=== PATIENT | female | born 1950 | race Caucasian/White ===

== ENCOUNTER → 2017-04-22 | Outpatient (CLI) | payer MEDICAID | LOC: BRMIMAGING 14:03 | PROVIDERS: ATTEND Obstetrics & Gynecology Gynecology | DX: N95.0 Postmenopausal bleeding (principal); R93.8 Abnormal findings on diagnostic imaging of other specified body structures | CPT/HCPCS: 76856-PO ==

== ENCOUNTER → 2017-05-11 | Outpatient (CLI) | payer MEDICAID | LOC: BRMIMAGING 14:31 | PROVIDERS: ATTEND Internal Medicine | DX: Z12.31 Encounter for screening mammogram for malignant neoplasm of breast (principal); Z80.3 Family history of malignant neoplasm of breast | CPT/HCPCS: G0202 ==

== ENCOUNTER 2017-06-09 05:40 | Day surgery (SDC) | payer MEDICAID ==
--- NOTE | 2017-06-08 23:02 | GHP ---
[f rep st] PREOP HISTORY AND PHYSICAL DATE OF ADMISSION: 06/09/2017 DATE OF SURGERY: 06/09/2017, on the Gynecology Service. PREOPERATIVE HISTORY: The patient is a 66-year-old, G1, P1, postmenopausal since the age of 53, who had an episode of postmenopausal bleeding in April 2017. The patient had bleeding for a day and pelvic pain for a couple days in early April. The patient had not had any different physical activity and has not been sexually active for years. The patient denied any vaginal discharge, odor, itch or burning. The patient had an ultrasound performed which shows a thickened uterine lining of 11.4 mm. The uterus itself is small at 5 x 2.6 x 2.6 cm. Ovaries bilaterally were normal. An attempt was made in mid April to perform an endometrial biopsy. However, due to cervical stenosis, this was not successful. At that time, the patient was felt to have atrophic vaginitis and was advised to use estrogen cream. Was also noted to have some signs of lichen sclerosus and was given a topical clobetasol cream. The patient has used this for a couple weeks. The vaginal estrogen she was given for the atrophic changes were discontinued after the ultrasound findings were obtained. The patient was given options of trying to re-attempt another endometrial biopsy in the office versus proceeding with a hysteroscopy and D and C for more thorough sampling. The patient opted to proceed to the operating room. Risks and benefits were discussed and the consent form signed. PAST MEDICAL HISTORY: Hypertension since 2009. 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 In evaluation of the sarcoidosis, the patient was found to have pulmonary nodules. On her cardiac assessment, an EKG showed left axis deviation. Has been followed up with Dr. Graham. History of GERD. Restless legs. Abnormal Pap smear with KAYLEEN III per patient with a cervical conization in late 20s. PAST SURGICAL HISTORY: Multiple knee surgeries on her left and a total knee replacement on the right. Also, quadriceps tendon repair on the left. HOSPITALIZATIONS: In December 2014, acute pancreatitis. PAST OBSTETRIC HISTORY: In 1978, a vaginal forceps-assisted delivery. ALLERGIES: The patient has no known drug allergies. CURRENT MEDICATION: Losartan 25 mg daily, gabapentin 600 mg daily, tramadol 25 mg daily, omeprazole 20 mg daily, Percocet 10/325 three times a week, clobetasol topically twice a week for 2 weeks. SOCIAL HISTORY: The patient is single. Patient has not been sexually active for years. non-smoker. No alcohol or drug use. The patient is exercising 6d a week. patient did have chlamydia, normal pap and neg HPV April 2017. REVIEW OF SYSTEMS: 8 point ROS with pertinent positives and negatives noted above. PHYSICAL EXAMINATION: GENERAL: well-developed, obese white female in no physical distress. VITAL SIGNS: The patient is clinically afebrile. Blood pressure 116/70. LUNGS: Clear to auscultation bilaterally. CARDIOVASCULAR: Regular rate and rhythm. PELVIC: Performed. There was a flat cervix. Was difficult to locate the os. BIMANUAL: The uterus is small, nontender. There are no adnexal masses. There is some mild questionable signs of lichen sclerosus with agglutinated upper labial folds and thin epithelium. EXTREMITIES : Nontender. ASSESSMENT: Postmenopausal bleeding with thickened lining on ultrasound. Stenotic cervix noted in the office. The patient was given a prescription for Cytotec to use prior to the procedure for cervical softening. The patient wants to proceed with definitive management with a hysteroscopy and dilation and curettage for evaluation. PLAN: The patient will use the Cytotec. Then, present on 06/09/2017, for surgery. Patient also has a history of hypertension, sarcoidosis, gastroesophageal reflux disease, and history of a conization for severe dysplasia. /[id number]/MODL MTDD
[2017-06-09] MEDS ORDERED: ceFAZolin 2 GM/SWFI 2 GM/20 ML SYR IVP ONE (06:15)
[2017-06-09] MEDS ORDERED: LIDOCAINE 1% 2 ML INJ ID PRN (06:16)
[2017-06-09] MEDS ORDERED: LR 1,000 ML IV ONE (06:16)
[2017-06-09 06:47] VITALS: PULSE 76
[2017-06-09] MEDS ORDERED: MIDAZOLAM 2 MG/2 ML VIAL ONE (06:50)
[2017-06-09] MEDS ORDERED: fentaNYL 100 MCG/2 ML INJ ONE ×2 (06:50→08:32)
[2017-06-09] MEDS ORDERED: PROPOFOL 200 MG/20 ML VIAL ONE (06:50)
[2017-06-09] MEDS ORDERED: PROPOFOL/EMULSION 500 MG/50 ML BOTTLE IV ONE (06:55)
[2017-06-09] MEDS ORDERED: LIDOCAINE 1% 300 MG/30 ML SDV ONE (07:06)
[2017-06-09] MEDS ORDERED: SILVER NITRATE APPLICATOR 1 APPL TP ONE (07:06)
--- NOTE | 2017-06-09 07:10 | PDANEPAE ---
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 She has had no prior issues with general anesthesia. She took her losartan last pm. ANE Past Medical History - Cardiovascular History Hx Hypertension: Yes Hx Arrhythmias: No Hx Chest Pain: No Hx Coronary Artery / Peripheral Vascular Disease: No Hx CHF / Valvular Disease: Yes Hx Palpitations: Yes Cardiovascular History Comment: htn. diastolic chf acute on chronic exacerbation hospitalized 12/15-12/20 - Pulmonary History Hx COPD: No Hx Asthma/Reactive Airway Disease: No Hx Recent Upper Respiratory Infection: No Hx Oxygen in Use at Home: Yes O2 in Use at Home (L/minute): 2L at night Hx Sleep Apnea: Yes Sleep Apnea Screening Result - Last Documented: Positive Pulmonary History Comment: zenon positive, sarcoidosis - Neurologic History Hx Cerebrovascular Accident: No Hx Seizures: No Hx Dementia: No Neurologic History Comment: hx of back surgeries - Endocrine History Hx Diabetes: No - Renal History Hx Renal Disorders: No - Liver History Hx Hepatic Disorders: No - Neurological & Psychiatric Hx Hx Neurological and Psychiatric Disorders: Yes Neurological / Psychiatric History Comment: restless leg - Cancer History Hx Cancer: Yes 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 07/18/13 left tka revision. bilateral carpal tunnel. spinal fusion l4-5 2009. 03/2006 microdiscectomy. repeat microdiscectomy. 05/2006 right ankle reconstruction. 11/1993 plantar fasciotomy left. 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 ANE Review of Systems Review of Systems: - Exercise capacity METS (RN): 4 METS ANE Patient History - Allergies Allergies/Adverse Reactions: No Known Allergies Allergy (Verified 05/25/17 11:10) - Home Medications Home Medications: Cholecalciferol Vit D3 [Vitamin D3 (*)] 12/15/14 [Last Taken 06/02/17] Herbals/Supplements -Info Only 12/15/14 [Last Taken 12/14/14] Losartan Potassium [Cozaar 25 mg (*)] 12/15/14 [Last Taken 06/08/17 21:00] Omeprazole [Prilosec 20 mg] 12/15/14 [Last Taken 06/09/17 04:30] Oxycodone HCl/Acetaminophen [Percocet 10-325 mg Tablet] 12/15/14 [Last Taken ] Biotin 05/25/17 [Last Taken 06/08/17 21:00] Finacea 05/25/17 [Last Taken 06/08/17 08:00] Horizant 05/25/17 [Last Taken 06/08/17 21:00] Metronidazole 05/25/17 [Last Taken 06/08/17 08:00] Naproxen Sodium 05/25/17 [Last Taken 06/02/17] Percocet 5/325 (*) 05/25/17 [Last Taken 06/08/17] Prilosec 05/25/17 [Last Taken 06/08/17 04:30] Vitamin B Complex 05/25/17 [Last Taken 06/02/17] Vitamin D3 05/25/17 [Last Taken Unknown] - NPO status NPO Since - Liquids (Date): 06/09/17 NPO Since - Liquids (Time): 22:00 NPO Since - Solids (Date): 06/08/17 NPO Since - Solids (Time): 19:00 - Smoking Hx Smoking Status: Former smoker - Family Anes Hx Family Hx Anesthesia Complications: none ANE Labs/Vital Signs - Vital Signs Blood Pressure: 139/75 Heart Rate: 76 Respiratory Rate: 18 O2 Sat (%): 92 Height: 167.64 cm Weight: 108.862 kg ANE Physical Exam - Airway Neck exam: FROM Mallampati Score: Class 2 Mouth exam: normal dental/mouth exam - Pulmonary Pulmonary: no respiratory distress - Cardiovascular Cardiovascular: regular rate and rhythym - ASA Status ASA Status: III ANE Anesthesia Plan Anesthesia Plan: GA w LMA, MAC Total IV Anesthesia: Yes Urgent/Emergent Case: Nicolmulugeta reyeslselie completed preop but documented later for safe timely pt care
--- NOTE | 2017-06-09 07:27 | PDHPUP ---
History & Physical Update H&P update statement: This history and physical update is based on an assessment of the patient which was completed after admission or registration (within 24 hours), but prior to the surgery/procedure.
[2017-06-09] MEDS ORDERED: ACETAMINOPHEN 500 MG TAB PO PRN (07:54)
[2017-06-09] MEDS ORDERED: fentaNYL 100 MCG/2 ML INJ IVP PRN (07:54)
[2017-06-09] MEDS ORDERED: ONDANSETRON 4 MG/2 ML VIAL IVP PRN (07:54)
[2017-06-09] MEDS ORDERED: NALOXONE HCL 0.4 MG/ML INJ IVP PRN (07:54)
[2017-06-09] MEDS ORDERED: ONDANSETRON 4 MG/2 ML VIAL ONE (07:55)
[2017-06-09] MEDS ORDERED: KETOROLAC 30 MG/1 ML SDV ONE (08:10)
[2017-06-09] MEDS ORDERED: ACETAMINOPHEN 500 MG TAB ONE (08:29)
--- NOTE | 2017-06-09 08:30 | POSTOPPROG ---
Post Op Note Date of Operation: 06/09/17 Surgeon: Maria Ines Smith Anesthesiologist: Kaitlin Damian Anesthesia: IV Sedation (TIVA) Pre-op Diagnosis: ANIMAL BREEDER bleeding, thickened Endometrium Post-op Diagnosis: same Indication: episode of ANIMAL BREEDER bld in 04/23, lining 11 mm, no HRT, hx CKC, stenotic cx Procedure: HSC, D and C Findings: cx slowly dilated to 6.5 Barb, sm scope used, ? sm tissue upper endometriu Inf/Abcess present in the surg proc area at time of surgery?: No Depth: Organ Space EBL: Minimal Complications: none Specimen(s): scant endometrial curretting
[2017-06-09 08:59] VITALS: TEMP 98.1
[2017-06-09 09:06] VITALS: RESP 11
--- NOTE | 2017-06-09 09:13 | POSTANESTH ---
Post Anesthetic Evaluation Cardiovascular Status: Normal, Stable Respiratory Status: Normal, Stable Level of Consciousness/Mental Status: Can Participate in Eval Pain Control: Adequate, Prn Tx Ordered Nausea/Vomiting Control: Adequate, Prn Tx Ordered Complications Possibly Related to Anesthesia: None Noted
[2017-06-09 09:31] VITALS: BP 127/65; O2SAT 93
== END 2017-06-09 09:54 | disposition home or self-care (01) ==
LOC: FSGY 05:40
PROVIDERS: ATTEND Obstetrics & Gynecology
PROC: 0UDB8ZX Extraction of Endometrium, Via Natural or Artificial Opening Endoscopic, Diagnostic (ICD-10-PCS; principal; 2017-06-09 07:15)
DX: N95.0 Postmenopausal bleeding (principal); R93.8 Abnormal findings on diagnostic imaging of other specified body structures; N88.2 Stricture and stenosis of cervix uteri; R10.2 Pelvic and perineal pain; D86.9 Sarcoidosis, unspecified; I11.0 Hypertensive heart disease with heart failure; I50.30 Unspecified diastolic (congestive) heart failure; K21.9 Gastro-esophageal reflux disease without esophagitis; G25.81 Restless legs syndrome; G47.33 Obstructive sleep apnea (adult) (pediatric); E66.9 Obesity, unspecified; Z68.38 Body mass index [BMI] 38.0-38.9, adult; Z86.001 Personal history of in-situ neoplasm of cervix uteri; Z96.651 Presence of right artificial knee joint
CPT/HCPCS: 58558; C1782; J0690; J1885; J2250; J2405; J2704; J3010

== ENCOUNTER → 2018-08-09 | Outpatient (CLI) | payer OTHER, MEDICARE | LOC: BRMIMAGING 14:31 | PROVIDERS: ATTEND Internal Medicine | DX: Z12.31 Encounter for screening mammogram for malignant neoplasm of breast (principal); Z80.3 Family history of malignant neoplasm of breast ==